=== PATIENT | male | born 1975 | race African-American/Black ===

== ENCOUNTER 2023-01-23 18:50 | Inpatient (IN) | payer OTHER ==
[2023-01-23 19:28] VITALS: BMI 34.0
[2023-01-23] MEDS ORDERED: BENZOCAINE/MENTHOL (CHLORASEPTIC ) LOZENGE MM PRN (21:58)
[2023-01-23] MEDS ORDERED: guaiFENesin 600 MG TABLET.ER (FP) PO PRN (21:58)
[2023-01-23] MEDS ORDERED: MAG HYDROX/AL HYDROX/SIMETH 30 ML UNIT-DOSE CUP PO PRN (21:58)
[2023-01-23] MEDS ORDERED: POLYETHYLENE GLYCOL (HEALTHYLAX) 3350 17 GM PACKET PO PRN (21:58)
[2023-01-23] MEDS ORDERED: BENZONATATE 200 MG CAPSULE PO PRN (21:58)
[2023-01-23] MEDS ORDERED: ACETAMINOPHEN 325 MG TABLET (FP) PO PRN (21:58)
[2023-01-23] MEDS ORDERED: NICOTINE POLACRILEX 2 MG GUM BUC PRN (21:58)
[2023-01-23] MEDS ORDERED: COLLOIDAL OATMEAL 1 BAR EACH TP PRN (21:58)
[2023-01-23] MEDS ORDERED: LOPERAMIDE HCL 2 MG CAPSULE PO PRN (21:58)
[2023-01-23] MEDS ORDERED: NALOXONE HCL (KLOXXADO) 8 MG SPRAY NS PRN (21:58)
[2023-01-23] MEDS ORDERED: MAGNESIUM HYDROX 2400MG/30ML ORAL SUSPENSION 30 ML CUP PO PRN (21:58)
[2023-01-23] MEDS ORDERED: NALOXONE HCL 0.4 MG/ML VIAL IM PRN (21:58)
[2023-01-23] MEDS ORDERED: MELATONIN 5 MG TABLETS PO SCH (22:00)
[2023-01-24] MEDS: THIAMINE HCL 100 MG TABLET (FP) PO SCH ×2 (05:58→21:34)
[2023-01-24] MEDS: PRENATAL VITAMINS W/ FOLIC ACID TABLET (FP) PO SCH (10:17)
[2023-01-24] MEDS: NICOTINE 14 MG/24 HOURS TOPICAL PATCH TD SCH (10:28)
[2023-01-24] MEDS ORDERED: TUBERCULIN PPD 5 TU/0.1ML SYRINGE (IN PATIENT USE ONLY) ID ONE (12:00)
[2023-01-24 13:15] LABS: HEMATOCRIT 43.8 % (35.4-49); HEMOGLOBIN 14.7 GM/dL (11.7-16.9); MCH 32.9 pg (25.7-33.7); MCHC 33.6 g/dl (32.0-35.9); MEAN CELL VOLUME 98.1 fl (80-96); PLATELET COUNT 253 10^3/uL (134-434); RBC 4.46 M/mm3 (4.00-5.60); RDW 14.8 % (11.9-15.9); WHITE BLOOD COUNT 6.8 K/mm3 (4.0-10.0)
[2023-01-24 13:17] LABS: CHLORIDE 106 mmol/L (98-107); POTASSIUM 3.9 mmol/L (3.5-5.1); SODIUM 138 mmol/L (136-145)
[2023-01-24 13:25] LABS: CALCIUM 8.5 mg/dL (8.5-10.1)
[2023-01-24 13:26] LABS: ALBUMIN 3.3 g/dl (3.4-5.0); ANION GAP 7 mmol/L (4-13); BLOOD UREA NITROGEN 11.8 mg/dL (7-18); CO2 26 mmol/L (21-32); GLUCOSE,RANDOM 107 mg/dL (74-106)
[2023-01-24 13:28] LABS: SGPT/ALT 12 U/L (13-61)
[2023-01-24 13:29] LABS: SGOT/AST 8 U/L (15-37)
[2023-01-24 13:30] LABS: BILIRUBIN,TOTAL 0.4 mg/dL (0.2-1); TOT PROT 6.5 g/dl (6.4-8.2)
[2023-01-24 13:31] LABS: ALK PHOS 89 U/L (45-117)
[2023-01-24 13:48] LABS: SYPHILIS W/ RPR CONF NON-REACTIVE (NONREACTIVE)
[2023-01-24 14:55] LABS: PH,URINE 5.5 (5.0-8.0); URINE APPEARANCE CLEAR; URINE BILIRUBIN NEGATIVE (NEGATIVE); URINE COLOR YELLOW; URINE GLUCOSE (UA) NEGATIVE (NEGATIVE); URINE KETONE NEGATIVE (NEGATIVE); URINE LEUK ESTERASE NEGATIVE (NEGATIVE); URINE NITRITE NEGATIVE (NEGATIVE); URINE PROTEIN NEGATIVE (NEGATIVE); URINE UROBILINOGEN 0.2 mg/dL (0.2-1.0)
[2023-01-24] MEDS: QUEtiapine FUMARATE 300 MG TABLET PO SCH (21:35)
[2023-01-24] MEDS ORDERED: QUEtiapine FUMARATE 100 MG TABLET (FP) ONE (21:35)
[2023-01-24] MEDS ORDERED: SUVOREXANT 10 MG TABLET PO PRN (22:00)
[2023-01-25] MEDS: NICOTINE 14 MG/24 HOURS TOPICAL PATCH TD SCH (10:52)
[2023-01-25] MEDS: PRENATAL VITAMINS W/ FOLIC ACID TABLET (FP) PO SCH (10:53)
[2023-01-25] MEDS ORDERED: QUEtiapine FUMARATE 100 MG TABLET (FP) ONE (19:14)
[2023-01-25] MEDS: QUEtiapine FUMARATE 300 MG TABLET PO SCH (21:28)
[2023-01-25] MEDS: THIAMINE HCL 100 MG TABLET (FP) PO SCH (21:28)
[2023-01-26] MEDS: NICOTINE 14 MG/24 HOURS TOPICAL PATCH TD SCH (10:23)
[2023-01-26] MEDS: PRENATAL VITAMINS W/ FOLIC ACID TABLET (FP) PO SCH (10:23)
[2023-01-26] MEDS: IBUPROFEN 400 MG TABLET (FP) PO PRN (10:25)
[2023-01-26] MEDS ORDERED: QUEtiapine FUMARATE 100 MG TABLET (FP) ONE (18:43)
[2023-01-26] MEDS: THIAMINE HCL 100 MG TABLET (FP) PO SCH (21:23)
[2023-01-26] MEDS: QUEtiapine FUMARATE 300 MG TABLET PO SCH (21:23)
[2023-01-26] MEDS: SUVOREXANT 10 MG TABLET PO PRN (21:24)
[2023-01-27] MEDS: NICOTINE 14 MG/24 HOURS TOPICAL PATCH TD SCH (10:13)
[2023-01-27] MEDS: PRENATAL VITAMINS W/ FOLIC ACID TABLET (FP) PO SCH (10:13)
[2023-01-27] MEDS: IBUPROFEN 600 MG TABLET (FP) PO PRN (15:49)
[2023-01-27] MEDS ORDERED: QUEtiapine FUMARATE 100 MG TABLET (FP) ONE (19:57)
[2023-01-27] MEDS: THIAMINE HCL 100 MG TABLET (FP) PO SCH (21:13)
[2023-01-27] MEDS: SUVOREXANT 10 MG TABLET PO PRN (21:13)
[2023-01-27] MEDS: QUEtiapine FUMARATE 300 MG TABLET PO SCH (21:14)
[2023-01-28] MEDS: PRENATAL VITAMINS W/ FOLIC ACID TABLET (FP) PO SCH (11:15)
[2023-01-28] MEDS: NICOTINE 14 MG/24 HOURS TOPICAL PATCH TD SCH (11:15)
[2023-01-28] MEDS ORDERED: QUEtiapine FUMARATE 100 MG TABLET (FP) ONE (18:17)
[2023-01-28] MEDS: QUEtiapine FUMARATE 300 MG TABLET PO SCH (21:07)
[2023-01-28] MEDS: THIAMINE HCL 100 MG TABLET (FP) PO SCH (21:07)
[2023-01-28] MEDS: SUVOREXANT 10 MG TABLET PO PRN (21:08)
[2023-01-29] MEDS: NICOTINE 14 MG/24 HOURS TOPICAL PATCH TD SCH (10:45)
[2023-01-29] MEDS: PRENATAL VITAMINS W/ FOLIC ACID TABLET (FP) PO SCH (10:45)
[2023-01-29] MEDS: IBUPROFEN 600 MG TABLET (FP) PO PRN (13:16)
[2023-01-29] MEDS: THIAMINE HCL 100 MG TABLET (FP) PO SCH (21:26)
[2023-01-29] MEDS: SUVOREXANT 10 MG TABLET PO PRN (21:27)
[2023-01-29] MEDS: QUEtiapine FUMARATE 300 MG TABLET PO SCH (21:27)
[2023-01-29] MEDS: IBUPROFEN 400 MG TABLET (FP) PO PRN (21:28)
[2023-01-29] MEDS ORDERED: SUVOREXANT 10 MG TABLET PO PRN (22:00)
[2023-01-30] MEDS: PRENATAL VITAMINS W/ FOLIC ACID TABLET (FP) PO SCH (10:37)
[2023-01-30] MEDS: IBUPROFEN 600 MG TABLET (FP) PO PRN ×2 (10:38→21:28)
[2023-01-30] MEDS: NICOTINE 14 MG/24 HOURS TOPICAL PATCH TD SCH (10:40)
[2023-01-30] MEDS ORDERED: NICOTINE 14 MG/24 HOURS TOPICAL PATCH TD PRN (11:33)
[2023-01-30] MEDS: LIDOCAINE 4% PATCH TP SCH (13:31)
[2023-01-30] MEDS: QUEtiapine FUMARATE 400 MG TABLET PO SCH (21:27)
[2023-01-30] MEDS: METHYL SALICYLATE/MENTHOL OINT 30 GM TUBE TP SCH (21:27)
[2023-01-30] MEDS: LIDOCAINE PATCH REMOVAL MC SCH (21:27)
[2023-01-30] MEDS: THIAMINE HCL 100 MG TABLET (FP) PO SCH (21:28)
[2023-01-30] MEDS: SUVOREXANT 10 MG TABLET PO PRN (21:28)
[2023-01-31] MEDS: IBUPROFEN 600 MG TABLET (FP) PO PRN ×2 (06:20→21:30)
[2023-01-31] MEDS: LIDOCAINE 4% PATCH TP SCH (10:16)
[2023-01-31] MEDS: METHYL SALICYLATE/MENTHOL OINT 30 GM TUBE TP SCH ×2 (10:16→21:30)
[2023-01-31] MEDS: PRENATAL VITAMINS W/ FOLIC ACID TABLET (FP) PO SCH (10:16)
[2023-01-31 12:44] LABS: INR 0.92 (0.83-1.09); PROTHROMBIN TIME (PATIENT) 10.7 SEC (9.7-13.0)
[2023-01-31] MEDS: THIAMINE HCL 100 MG TABLET (FP) PO SCH (21:29)
[2023-01-31] MEDS: QUEtiapine FUMARATE 400 MG TABLET PO SCH (21:29)
[2023-01-31] MEDS: SUVOREXANT 10 MG TABLET PO PRN (21:30)
[2023-01-31] MEDS: LIDOCAINE PATCH REMOVAL MC SCH (22:19)
[2023-02-01] MEDS: METHYL SALICYLATE/MENTHOL OINT 30 GM TUBE TP SCH ×2 (10:10→21:30)
[2023-02-01] MEDS: PRENATAL VITAMINS W/ FOLIC ACID TABLET (FP) PO SCH (10:10)
[2023-02-01] MEDS: LIDOCAINE 4% PATCH TP SCH (10:10)
[2023-02-01] MEDS: IBUPROFEN 600 MG TABLET (FP) PO PRN ×2 (12:40→21:04)
[2023-02-01] MEDS: CYANOCOBALAMIN (VITAMIN B-12) 100 MCG TABLET PO SCH (18:15)
[2023-02-01] MEDS: LIDOCAINE PATCH REMOVAL MC SCH (21:04)
[2023-02-01] MEDS: THIAMINE HCL 100 MG TABLET (FP) PO SCH (21:04)
[2023-02-01] MEDS: QUEtiapine FUMARATE 400 MG TABLET PO SCH (21:04)
[2023-02-01] MEDS: SUVOREXANT 10 MG TABLET PO PRN (21:04)
[2023-02-02] MEDS: METHYL SALICYLATE/MENTHOL OINT 30 GM TUBE TP SCH ×2 (09:40→21:42)
[2023-02-02] MEDS: PRENATAL VITAMINS W/ FOLIC ACID TABLET (FP) PO SCH (09:40)
[2023-02-02] MEDS: LIDOCAINE 4% PATCH TP SCH (09:40)
[2023-02-02] MEDS: CYANOCOBALAMIN (VITAMIN B-12) 100 MCG TABLET PO SCH (10:17)
[2023-02-02] MEDS: SUVOREXANT 10 MG TABLET PO PRN (21:32)
[2023-02-02] MEDS: QUEtiapine FUMARATE 400 MG TABLET PO SCH (21:32)
[2023-02-02] MEDS: THIAMINE HCL 100 MG TABLET (FP) PO SCH (21:32)
[2023-02-02] MEDS: IBUPROFEN 600 MG TABLET (FP) PO PRN (21:32)
[2023-02-02] MEDS: LIDOCAINE PATCH REMOVAL MC SCH (21:42)
[2023-02-03] MEDS: CYANOCOBALAMIN (VITAMIN B-12) 100 MCG TABLET PO SCH (09:55)
[2023-02-03] MEDS: PRENATAL VITAMINS W/ FOLIC ACID TABLET (FP) PO SCH (09:55)
[2023-02-03] MEDS: LIDOCAINE 4% PATCH TP SCH (09:56)
[2023-02-03] MEDS: IBUPROFEN 600 MG TABLET (FP) PO PRN ×2 (09:56→21:13)
[2023-02-03] MEDS: METHYL SALICYLATE/MENTHOL OINT 30 GM TUBE TP SCH ×2 (09:58→21:16)
[2023-02-03] MEDS: THIAMINE HCL 100 MG TABLET (FP) PO SCH (21:13)
[2023-02-03] MEDS: QUEtiapine FUMARATE 400 MG TABLET PO SCH (21:14)
[2023-02-03] MEDS: SUVOREXANT 10 MG TABLET PO PRN (21:15)
[2023-02-03] MEDS: LIDOCAINE PATCH REMOVAL MC SCH (21:16)
[2023-02-04] MEDS: CYANOCOBALAMIN (VITAMIN B-12) 100 MCG TABLET PO SCH (09:37)
[2023-02-04] MEDS: PRENATAL VITAMINS W/ FOLIC ACID TABLET (FP) PO SCH (09:37)
[2023-02-04] MEDS: IBUPROFEN 600 MG TABLET (FP) PO PRN ×2 (09:38→21:25)
[2023-02-04] MEDS: METHYL SALICYLATE/MENTHOL OINT 30 GM TUBE TP SCH ×2 (09:39→21:26)
[2023-02-04] MEDS: LIDOCAINE 4% PATCH TP SCH (09:39)
[2023-02-04] MEDS: THIAMINE HCL 100 MG TABLET (FP) PO SCH (21:25)
[2023-02-04] MEDS: QUEtiapine FUMARATE 400 MG TABLET PO SCH (21:25)
[2023-02-04] MEDS: SUVOREXANT 10 MG TABLET PO PRN (21:25)
[2023-02-04] MEDS: LIDOCAINE PATCH REMOVAL MC SCH (21:26)
[2023-02-05] MEDS: PRENATAL VITAMINS W/ FOLIC ACID TABLET (FP) PO SCH (10:56)
[2023-02-05] MEDS: METHYL SALICYLATE/MENTHOL OINT 30 GM TUBE TP SCH ×2 (10:56→21:30)
[2023-02-05] MEDS: LIDOCAINE 4% PATCH TP SCH (10:56)
[2023-02-05] MEDS: CYANOCOBALAMIN (VITAMIN B-12) 100 MCG TABLET PO SCH (10:57)
[2023-02-05] MEDS: LIDOCAINE PATCH REMOVAL MC SCH (21:29)
[2023-02-05] MEDS: THIAMINE HCL 100 MG TABLET (FP) PO SCH (21:29)
[2023-02-05] MEDS: SUVOREXANT 10 MG TABLET PO PRN (21:29)
[2023-02-05] MEDS: QUEtiapine FUMARATE 400 MG TABLET PO SCH (21:29)
[2023-02-05] MEDS: IBUPROFEN 400 MG TABLET (FP) PO PRN (21:30)
[2023-02-06] MEDS: PRENATAL VITAMINS W/ FOLIC ACID TABLET (FP) PO SCH (09:36)
[2023-02-06] MEDS: METHYL SALICYLATE/MENTHOL OINT 30 GM TUBE TP SCH ×2 (09:36→21:23)
[2023-02-06] MEDS: IBUPROFEN 600 MG TABLET (FP) PO PRN ×2 (09:37→21:23)
[2023-02-06] MEDS: LIDOCAINE 4% PATCH TP SCH (09:37)
[2023-02-06] MEDS: CYANOCOBALAMIN (VITAMIN B-12) 100 MCG TABLET PO SCH (09:37)
[2023-02-06] MEDS: QUEtiapine FUMARATE 400 MG TABLET PO SCH (21:21)
[2023-02-06] MEDS: LIDOCAINE PATCH REMOVAL MC SCH (21:21)
[2023-02-06] MEDS: THIAMINE HCL 100 MG TABLET (FP) PO SCH (21:21)
[2023-02-06] MEDS: SUVOREXANT 10 MG TABLET PO PRN (21:22)
[2023-02-07] MEDS: CYANOCOBALAMIN (VITAMIN B-12) 100 MCG TABLET PO SCH (10:01)
[2023-02-07] MEDS: PRENATAL VITAMINS W/ FOLIC ACID TABLET (FP) PO SCH (10:01)
[2023-02-07] MEDS: IBUPROFEN 600 MG TABLET (FP) PO PRN ×2 (10:01→21:07)
[2023-02-07] MEDS: METHYL SALICYLATE/MENTHOL OINT 30 GM TUBE TP SCH ×2 (10:02→21:08)
[2023-02-07] MEDS: LIDOCAINE 4% PATCH TP SCH (10:02)
[2023-02-07] MEDS: THIAMINE HCL 100 MG TABLET (FP) PO SCH (21:06)
[2023-02-07] MEDS: QUEtiapine FUMARATE 400 MG TABLET PO SCH (21:06)
[2023-02-07] MEDS: SUVOREXANT 10 MG TABLET PO PRN (21:07)
[2023-02-07] MEDS: LIDOCAINE PATCH REMOVAL MC SCH (21:08)
[2023-02-08] MEDS ORDERED: AMMONIUM LACTATE 12% LOTION 225 GM BOTTLE TP PRN (08:41)
[2023-02-08] MEDS: CYANOCOBALAMIN (VITAMIN B-12) 100 MCG TABLET PO SCH (09:51)
[2023-02-08] MEDS: LIDOCAINE 4% PATCH TP SCH (09:51)
[2023-02-08] MEDS: PRENATAL VITAMINS W/ FOLIC ACID TABLET (FP) PO SCH (09:51)
[2023-02-08] MEDS: METHYL SALICYLATE/MENTHOL OINT 30 GM TUBE TP SCH ×2 (09:51→21:22)
[2023-02-08] MEDS: ACETAMINOPHEN 325 MG TABLET (FP) PO PRN ×2 (09:52→21:22)
[2023-02-08] MEDS: QUEtiapine FUMARATE 400 MG TABLET PO SCH (21:21)
[2023-02-08] MEDS: THIAMINE HCL 100 MG TABLET (FP) PO SCH (21:21)
[2023-02-08] MEDS: SUVOREXANT 10 MG TABLET PO PRN (21:21)
[2023-02-08] MEDS: LIDOCAINE PATCH REMOVAL MC SCH (21:22)
[2023-02-09] MEDS: PRENATAL VITAMINS W/ FOLIC ACID TABLET (FP) PO SCH (10:12)
[2023-02-09] MEDS: CYANOCOBALAMIN (VITAMIN B-12) 100 MCG TABLET PO SCH (10:12)
[2023-02-09] MEDS: LIDOCAINE 4% PATCH TP SCH (10:12)
[2023-02-09] MEDS: METHYL SALICYLATE/MENTHOL OINT 30 GM TUBE TP SCH ×2 (10:12→21:11)
[2023-02-09] MEDS: ACETAMINOPHEN 325 MG TABLET (FP) PO PRN ×3 (10:13→21:10)
[2023-02-09] MEDS: IBUPROFEN 600 MG TABLET (FP) PO PRN ×2 (15:53→21:10)
[2023-02-09] MEDS: QUEtiapine FUMARATE 400 MG TABLET PO SCH (21:09)
[2023-02-09] MEDS: THIAMINE HCL 100 MG TABLET (FP) PO SCH (21:09)
[2023-02-09] MEDS: SUVOREXANT 10 MG TABLET PO PRN (21:10)
[2023-02-09] MEDS: LIDOCAINE PATCH REMOVAL MC SCH (21:11)
[2023-02-10] MEDS: PRENATAL VITAMINS W/ FOLIC ACID TABLET (FP) PO SCH (09:48)
[2023-02-10] MEDS: CYANOCOBALAMIN (VITAMIN B-12) 100 MCG TABLET PO SCH (09:48)
[2023-02-10] MEDS: IBUPROFEN 600 MG TABLET (FP) PO PRN ×2 (09:49→21:31)
[2023-02-10] MEDS: ACETAMINOPHEN 325 MG TABLET (FP) PO PRN (09:50)
[2023-02-10] MEDS: LIDOCAINE 4% PATCH TP SCH (09:51)
[2023-02-10] MEDS: METHYL SALICYLATE/MENTHOL OINT 30 GM TUBE TP SCH ×2 (09:51→21:30)
[2023-02-10] MEDS: THIAMINE HCL 100 MG TABLET (FP) PO SCH (21:29)
[2023-02-10] MEDS: LIDOCAINE PATCH REMOVAL MC SCH (21:30)
[2023-02-10] MEDS: QUEtiapine FUMARATE 400 MG TABLET PO SCH (21:30)
[2023-02-10] MEDS: SUVOREXANT 10 MG TABLET PO PRN (21:30)
[2023-02-11] MEDS: METHYL SALICYLATE/MENTHOL OINT 30 GM TUBE TP SCH ×2 (09:53→21:09)
[2023-02-11] MEDS: PRENATAL VITAMINS W/ FOLIC ACID TABLET (FP) PO SCH (09:53)
[2023-02-11] MEDS: LIDOCAINE 4% PATCH TP SCH (09:53)
[2023-02-11] MEDS: IBUPROFEN 600 MG TABLET (FP) PO PRN ×2 (09:55→21:07)
[2023-02-11] MEDS: ACETAMINOPHEN 325 MG TABLET (FP) PO PRN ×2 (09:55→21:08)
[2023-02-11] MEDS: CYANOCOBALAMIN (VITAMIN B-12) 100 MCG TABLET PO SCH (10:40)
[2023-02-11] MEDS: THIAMINE HCL 100 MG TABLET (FP) PO SCH (21:07)
[2023-02-11] MEDS: QUEtiapine FUMARATE 400 MG TABLET PO SCH (21:07)
[2023-02-11] MEDS: SUVOREXANT 10 MG TABLET PO PRN (21:08)
[2023-02-11] MEDS: LIDOCAINE PATCH REMOVAL MC SCH (21:09)
[2023-02-12] MEDS: METHYL SALICYLATE/MENTHOL OINT 30 GM TUBE TP SCH ×2 (10:20→21:25)
[2023-02-12] MEDS: LIDOCAINE 4% PATCH TP SCH (10:20)
[2023-02-12] MEDS: CYANOCOBALAMIN (VITAMIN B-12) 100 MCG TABLET PO SCH (10:21)
[2023-02-12] MEDS: PRENATAL VITAMINS W/ FOLIC ACID TABLET (FP) PO SCH (10:21)
[2023-02-12] MEDS: IBUPROFEN 600 MG TABLET (FP) PO PRN (11:15)
[2023-02-12] MEDS: ACETAMINOPHEN 325 MG TABLET (FP) PO PRN ×2 (11:16→21:24)
[2023-02-12] MEDS: THIAMINE HCL 100 MG TABLET (FP) PO SCH (21:23)
[2023-02-12] MEDS: QUEtiapine FUMARATE 400 MG TABLET PO SCH (21:23)
[2023-02-12] MEDS: IBUPROFEN 400 MG TABLET (FP) PO PRN (21:24)
[2023-02-12] MEDS: SUVOREXANT 10 MG TABLET PO PRN (21:25)
[2023-02-12] MEDS: LIDOCAINE PATCH REMOVAL MC SCH (21:25)
[2023-02-12] MEDS ORDERED: SUVOREXANT 10 MG TABLET PO PRN (22:00)
[2023-02-13] MEDS: IBUPROFEN 400 MG TABLET (FP) PO PRN (09:34)
[2023-02-13] MEDS: CYANOCOBALAMIN (VITAMIN B-12) 100 MCG TABLET PO SCH (09:34)
[2023-02-13] MEDS: ACETAMINOPHEN 325 MG TABLET (FP) PO PRN (09:35)
[2023-02-13] MEDS: PRENATAL VITAMINS W/ FOLIC ACID TABLET (FP) PO SCH (09:36)
[2023-02-13] MEDS: METHYL SALICYLATE/MENTHOL OINT 30 GM TUBE TP SCH ×2 (09:38→21:19)
[2023-02-13] MEDS: LIDOCAINE 4% PATCH TP SCH (09:38)
[2023-02-13] MEDS: QUEtiapine FUMARATE 400 MG TABLET PO SCH (21:17)
[2023-02-13] MEDS: LIDOCAINE PATCH REMOVAL MC SCH (21:18)
[2023-02-13] MEDS: THIAMINE HCL 100 MG TABLET (FP) PO SCH (21:18)
[2023-02-13] MEDS: IBUPROFEN 600 MG TABLET (FP) PO PRN (21:19)
[2023-02-14] MEDS: METHYL SALICYLATE/MENTHOL OINT 30 GM TUBE TP SCH ×2 (09:45→21:25)
[2023-02-14] MEDS: PRENATAL VITAMINS W/ FOLIC ACID TABLET (FP) PO SCH (09:45)
[2023-02-14] MEDS: ACETAMINOPHEN 325 MG TABLET (FP) PO PRN ×2 (09:45→21:25)
[2023-02-14] MEDS: LIDOCAINE 4% PATCH TP SCH (09:45)
[2023-02-14] MEDS: CYANOCOBALAMIN (VITAMIN B-12) 100 MCG TABLET PO SCH (09:45)
[2023-02-14] MEDS: IBUPROFEN 600 MG TABLET (FP) PO PRN ×2 (09:46→21:24)
[2023-02-14] MEDS: SUVOREXANT 10 MG TABLET PO PRN (21:24)
[2023-02-14] MEDS: THIAMINE HCL 100 MG TABLET (FP) PO SCH (21:24)
[2023-02-14] MEDS: QUEtiapine FUMARATE 400 MG TABLET PO SCH (21:24)
[2023-02-14] MEDS: LIDOCAINE PATCH REMOVAL MC SCH (21:25)
[2023-02-15] MEDS: CYANOCOBALAMIN (VITAMIN B-12) 100 MCG TABLET PO SCH (09:47)
[2023-02-15] MEDS: PRENATAL VITAMINS W/ FOLIC ACID TABLET (FP) PO SCH (09:47)
[2023-02-15] MEDS: LIDOCAINE 4% PATCH TP SCH (09:47)
[2023-02-15] MEDS: ACETAMINOPHEN 325 MG TABLET (FP) PO PRN ×2 (09:48→21:24)
[2023-02-15] MEDS: IBUPROFEN 600 MG TABLET (FP) PO PRN ×2 (09:49→21:25)
[2023-02-15] MEDS: METHYL SALICYLATE/MENTHOL OINT 30 GM TUBE TP SCH ×2 (10:25→21:25)
[2023-02-15] MEDS: THIAMINE HCL 100 MG TABLET (FP) PO SCH (21:24)
[2023-02-15] MEDS: QUEtiapine FUMARATE 400 MG TABLET PO SCH (21:24)
[2023-02-15] MEDS: LIDOCAINE PATCH REMOVAL MC SCH (21:25)
[2023-02-15] MEDS: SUVOREXANT 10 MG TABLET PO PRN (21:25)
[2023-02-16] MEDS: CYANOCOBALAMIN (VITAMIN B-12) 100 MCG TABLET PO SCH (09:49)
[2023-02-16] MEDS: PRENATAL VITAMINS W/ FOLIC ACID TABLET (FP) PO SCH (09:49)
[2023-02-16] MEDS: LIDOCAINE 4% PATCH TP SCH (09:49)
[2023-02-16] MEDS: METHYL SALICYLATE/MENTHOL OINT 30 GM TUBE TP SCH ×2 (09:49→21:09)
[2023-02-16] MEDS ORDERED: hydrOXYzine PAMOATE 25 MG CAPSULE (FP) PO SCH (10:45)
[2023-02-16] MEDS: IBUPROFEN 600 MG TABLET (FP) PO PRN ×2 (15:43→21:07)
[2023-02-16] MEDS: ACETAMINOPHEN 325 MG TABLET (FP) PO PRN ×2 (15:45→21:06)
[2023-02-16] MEDS: THIAMINE HCL 100 MG TABLET (FP) PO SCH (21:06)
[2023-02-16] MEDS: QUEtiapine FUMARATE 400 MG TABLET PO SCH (21:06)
[2023-02-16] MEDS: SUVOREXANT 10 MG TABLET PO PRN (21:07)
[2023-02-16] MEDS: traZODone HCL 100 MG TABLET (FP) PO PRN (21:08)
[2023-02-16] MEDS: LIDOCAINE PATCH REMOVAL MC SCH (21:09)
[2023-02-17] MEDS: CYANOCOBALAMIN (VITAMIN B-12) 100 MCG TABLET PO SCH (10:43)
[2023-02-17] MEDS: PRENATAL VITAMINS W/ FOLIC ACID TABLET (FP) PO SCH (10:43)
[2023-02-17] MEDS: ACETAMINOPHEN 325 MG TABLET (FP) PO PRN ×2 (10:44→21:23)
[2023-02-17] MEDS: IBUPROFEN 600 MG TABLET (FP) PO PRN ×2 (10:44→21:23)
[2023-02-17] MEDS: METHYL SALICYLATE/MENTHOL OINT 30 GM TUBE TP SCH ×2 (10:45→21:25)
[2023-02-17] MEDS: LIDOCAINE 4% PATCH TP SCH (10:45)
[2023-02-17] MEDS: hydrOXYzine PAMOATE 25 MG CAPSULE (FP) PO PRN (16:18)
[2023-02-17] MEDS: QUEtiapine FUMARATE 400 MG TABLET PO SCH (21:23)
[2023-02-17] MEDS: traZODone HCL 100 MG TABLET (FP) PO PRN (21:23)
[2023-02-17] MEDS: THIAMINE HCL 100 MG TABLET (FP) PO SCH (21:23)
[2023-02-17] MEDS: SUVOREXANT 10 MG TABLET PO PRN (21:24)
[2023-02-17] MEDS: LIDOCAINE PATCH REMOVAL MC SCH (21:25)
[2023-02-18] MEDS: LIDOCAINE 4% PATCH TP SCH (10:24)
[2023-02-18] MEDS: PRENATAL VITAMINS W/ FOLIC ACID TABLET (FP) PO SCH (10:25)
[2023-02-18] MEDS: IBUPROFEN 600 MG TABLET (FP) PO PRN ×2 (10:25→21:26)
[2023-02-18] MEDS: hydrOXYzine PAMOATE 25 MG CAPSULE (FP) PO PRN ×2 (10:25→21:27)
[2023-02-18] MEDS: CYANOCOBALAMIN (VITAMIN B-12) 100 MCG TABLET PO SCH (10:25)
[2023-02-18] MEDS: ACETAMINOPHEN 325 MG TABLET (FP) PO PRN ×2 (10:28→21:28)
[2023-02-18] MEDS: METHYL SALICYLATE/MENTHOL OINT 30 GM TUBE TP SCH ×2 (10:34→21:29)
[2023-02-18] MEDS: QUEtiapine FUMARATE 400 MG TABLET PO SCH (21:26)
[2023-02-18] MEDS: traZODone HCL 100 MG TABLET (FP) PO PRN (21:26)
[2023-02-18] MEDS: THIAMINE HCL 100 MG TABLET (FP) PO SCH (21:27)
[2023-02-18] MEDS: SUVOREXANT 10 MG TABLET PO PRN (21:27)
[2023-02-18] MEDS: LIDOCAINE PATCH REMOVAL MC SCH (21:29)
[2023-02-19 06:46] VITALS: TEMP 97.5
[2023-02-19] MEDS: CYANOCOBALAMIN (VITAMIN B-12) 100 MCG TABLET PO SCH (10:26)
[2023-02-19] MEDS: PRENATAL VITAMINS W/ FOLIC ACID TABLET (FP) PO SCH (10:26)
[2023-02-19] MEDS: LIDOCAINE 4% PATCH TP SCH (10:26)
[2023-02-19] MEDS: hydrOXYzine PAMOATE 25 MG CAPSULE (FP) PO PRN ×2 (10:27→21:20)
[2023-02-19] MEDS: IBUPROFEN 600 MG TABLET (FP) PO PRN (10:27)
[2023-02-19] MEDS: ACETAMINOPHEN 325 MG TABLET (FP) PO PRN ×2 (10:28→21:22)
[2023-02-19] MEDS: METHYL SALICYLATE/MENTHOL OINT 30 GM TUBE TP SCH ×2 (10:30→21:23)
[2023-02-19] MEDS: SUVOREXANT 10 MG TABLET PO PRN (21:20)
[2023-02-19] MEDS: traZODone HCL 100 MG TABLET (FP) PO PRN (21:20)
[2023-02-19] MEDS: QUEtiapine FUMARATE 400 MG TABLET PO SCH (21:20)
[2023-02-19] MEDS: THIAMINE HCL 100 MG TABLET (FP) PO SCH (21:21)
[2023-02-19] MEDS: IBUPROFEN 400 MG TABLET (FP) PO PRN (21:21)
[2023-02-19] MEDS: LIDOCAINE PATCH REMOVAL MC SCH (21:21)
[2023-02-20 07:23] VITALS: BP 120/65; PULSE 92; RESP 17
[2023-02-20] MEDS: METHYL SALICYLATE/MENTHOL OINT 30 GM TUBE TP SCH (09:32)
[2023-02-20] MEDS: PRENATAL VITAMINS W/ FOLIC ACID TABLET (FP) PO SCH (09:32)
[2023-02-20] MEDS: LIDOCAINE 4% PATCH TP SCH (09:32)
[2023-02-20] MEDS: CYANOCOBALAMIN (VITAMIN B-12) 100 MCG TABLET PO SCH (09:33)
[2023-02-20] MEDS: ACETAMINOPHEN 325 MG TABLET (FP) PO PRN (09:33)
[2023-02-20] MEDS: IBUPROFEN 600 MG TABLET (FP) PO PRN (09:34)
[2023-02-20] MEDS ORDERED: SUVOREXANT 10 MG TABLET PO PRN (22:00)
== END 2023-02-20 09:45 | disposition home or self-care (01) | DRG 772 ==
LOC: YASAS 18:50 → Y3W 23:50
PROVIDERS: ADMIT Surgery; ATTEND Psychiatry & Neurology Pain Medicine
PROC: HZ42ZZZ Group Counseling for Substance Abuse Treatment, Cognitive-Behavioral (ICD-10-PCS; principal; 2023-01-23)
DX: F14.20 Cocaine dependence, uncomplicated (principal); F10.10 Alcohol abuse, uncomplicated; F12.20 Cannabis dependence, uncomplicated; F17.210 Nicotine dependence, cigarettes, uncomplicated; F25.9 Schizoaffective disorder, unspecified; F31.9 Bipolar disorder, unspecified; F19.282 Other psychoactive substance dependence with psychoactive substance-induced sleep disorder; F19.24 Other psychoactive substance dependence with psychoactive substance-induced mood disorder; E72.20 Disorder of urea cycle metabolism, unspecified; M16.0 Bilateral primary osteoarthritis of hip; R26.89 Other abnormalities of gait and mobility; Z99.89 Dependence on other enabling machines and devices; Z62.810 Personal history of physical and sexual abuse in childhood; Z59.00 Homelessness unspecified
CPT/HCPCS: 36415; 80053; 80307; 81003; 82140; 82652; 83735; 85027; 85610; 86780; 86803; 87635; 93005; 93010

== ENCOUNTER 2023-04-06 16:19 | Inpatient (IN) | payer OTHER ==
[2023-04-06 16:59] VITALS: BMI 31.4
[2023-04-06] MEDS ORDERED: ACETAMINOPHEN 325 MG TABLET (FP) PO PRN (17:36)
[2023-04-06] MEDS ORDERED: IBUPROFEN 600 MG TABLET (FP) PO PRN (17:36)
[2023-04-06] MEDS ORDERED: LOPERAMIDE HCL 2 MG CAPSULE PO PRN (18:00)
[2023-04-06] MEDS ORDERED: P-EPHED 60MG/TRIPROLIDI 2.5MG TABLET PO PRN (18:00)
[2023-04-06] MEDS ORDERED: BENZOCAINE/MENTHOL (CHLORASEPTIC ) LOZENGE MM PRN (18:00)
[2023-04-06] MEDS ORDERED: POLYETHYLENE GLYCOL (HEALTHYLAX) 3350 17 GM PACKET PO PRN (18:00)
[2023-04-06] MEDS ORDERED: guaiFENesin 600 MG TABLET.ER (FP) PO PRN (18:00)
[2023-04-06] MEDS ORDERED: BENZONATATE 200 MG CAPSULE PO PRN (18:00)
[2023-04-06] MEDS ORDERED: MAG HYDROX/AL HYDROX/SIMETH 30 ML UNIT-DOSE CUP PO PRN (18:00)
[2023-04-06] MEDS ORDERED: hydrOXYzine PAMOATE 25 MG CAPSULE (FP) PO PRN (18:00)
[2023-04-06] MEDS ORDERED: MAGNESIUM HYDROX 2400MG/30ML ORAL SUSPENSION 30 ML CUP PO PRN (18:00)
[2023-04-06] MEDS: THIAMINE HCL 100 MG TABLET (FP) PO SCH (22:54)
[2023-04-06] MEDS: MELATONIN 5 MG TABLETS PO SCH (22:54)
[2023-04-06] MEDS: LIDOCAINE PATCH REMOVAL MC SCH (22:54)
[2023-04-07] MEDS: PRENATAL VITAMINS W/ FOLIC ACID TABLET (FP) PO SCH ×2 (10:58→11:00)
[2023-04-07] MEDS: LIDOCAINE 4% PATCH TP SCH (10:58)
[2023-04-07 11:51] LABS: HEMATOCRIT 40.1 % (35.4-49); HEMOGLOBIN 13.5 GM/dL (11.7-16.9); MCH 33.8 pg (25.7-33.7); MCHC 33.7 g/dl (32.0-35.9); MEAN CELL VOLUME 100.3 fl (80-96); MEAN PLT VOLUME 8.4 fl (7.5-11.1); PLATELET COUNT 183 10^3/uL (134-434); WHITE BLOOD COUNT 5.8 K/mm3 (4.0-10.0)
[2023-04-07 12:06] LABS: PH,URINE 5.5 (5.0-8.0); URINE APPEARANCE CLEAR; URINE BILIRUBIN NEGATIVE (NEGATIVE); URINE COLOR YELLOW; URINE GLUCOSE (UA) NEGATIVE (NEGATIVE); URINE KETONE NEGATIVE (NEGATIVE); URINE LEUK ESTERASE NEGATIVE (NEGATIVE); URINE NITRITE NEGATIVE (NEGATIVE); URINE PROTEIN NEGATIVE (NEGATIVE); URINE UROBILINOGEN 0.2 mg/dL (0.2-1.0)
[2023-04-07 12:11] LABS: POTASSIUM 4.1 mmol/L (3.5-5.1)
[2023-04-07 12:16] LABS: ALBUMIN 3.1 g/dl (3.4-5.0); BLOOD UREA NITROGEN 16.2 mg/dL (7-18)
[2023-04-07 12:19] LABS: CREATININE 0.9 mg/dL (0.55-1.3)
[2023-04-07 12:21] LABS: BILIRUBIN,TOTAL 0.3 mg/dL (0.2-1)
[2023-04-07] MEDS: QUEtiapine FUMARATE 200 MG TABLET PO SCH (21:39)
[2023-04-07] MEDS: traZODone HCL 50 MG TABLET (FP) PO SCH (21:39)
[2023-04-10] MEDS: ACETAMINOPHEN 325 MG TABLET (FP) PO PRN (21:54)
[2023-04-11 07:51] VITALS: RESP 18
[2023-04-11] MEDS: QUEtiapine FUMARATE 400 MG TABLET PO SCH (21:57)
[2023-04-12 07:26] VITALS: BP 115/74; PULSE 62; TEMP 97.3
== END 2023-04-12 11:26 | disposition home or self-care (01) | DRG 772 ==
LOC: YASAS 16:19 → Y3E 21:49
PROVIDERS: ADMIT Allergy & Immunology; ATTEND Psychiatry & Neurology Pain Medicine
PROC: HZ42ZZZ Group Counseling for Substance Abuse Treatment, Cognitive-Behavioral (ICD-10-PCS; principal; 2023-04-06)
DX: F10.20 Alcohol dependence, uncomplicated (principal); F14.20 Cocaine dependence, uncomplicated; F12.20 Cannabis dependence, uncomplicated; F17.210 Nicotine dependence, cigarettes, uncomplicated; F25.9 Schizoaffective disorder, unspecified; F32.A Depression, unspecified; M16.0 Bilateral primary osteoarthritis of hip
CPT/HCPCS: 36415; 80053; 80305; 81003; 85027; 86780; 87635